=== PATIENT | female | born 1990 | race Caucasian/White ===

== ENCOUNTER → 2024-04-24 12:51 | Outpatient (REF) | payer BC, SELFPAY ==
[2024-05-02 03:26] LABS: HPV, High Risk Not Detected; HPV, High Risk Source Anal
== END ==
LOC: CLAB 12:51
PROVIDERS: ATTENDING PHYSICIAN Surgery
DX: Z11.51 Encounter for screening for human papillomavirus (HPV) (principal)
CPT/HCPCS: 87624; 88112